=== PATIENT | female | born 1985 | race Two or more races ===

== ENCOUNTER 2016-09-01 10:50 | Inpatient (IN) | payer MEDICAID ==
[~2016-09-01] VITALS: Ht 157.5 cm; Wt 68.9 kg
[2016-09-01] MEDS ORDERED: LACTATED RINGER'S 1,000 ML IV SCH (11:47)
[2016-09-01] MEDS ORDERED: LACT. RINGERS/OXYTOCIN 20UNITS 1,000 ML IV SCH (11:47)
[2016-09-01] MEDS ORDERED: NALBUPHINE HCL 10 MG/1ml INJECTION IM PRN (12:00)
[2016-09-01] MEDS ORDERED: PHISODERM TOP SOLN 240ML BTL TOP PRN (12:00)
[2016-09-01] MEDS ORDERED: DERMOPLAST 60ML BOTTLE TOP PRN (12:00)
[2016-09-01] MEDS ORDERED: PROMETHAZINE HCL 25 MG/ML 1ML IV PRN (12:00)
[2016-09-01] MEDS ORDERED: LIDOCAINE 2%HCL (LOCAL ANESTH.) INJ 20ML MDV IJ ONE (12:00)
[2016-09-01] MEDS ORDERED: WITCH HAZEL-GLYCERIN PAD TOP PRN (12:00)
[2016-09-01 12:13] LABS: Basophils # (auto) 0 uL; Basophils % (auto) 0.3 % (0.0-2.0); Eosinophils # (auto) 0 uL; Eosinophils % (auto) 0.4 % (0.0-7.0); Hematocrit 41.8 % (36.0-46.0); Hemoglobin 13.8 g/dL (12.2-16.2); Lymphocytes # (auto) 1.4 uL; Lymphocytes % (auto) 15.8 % (10.0-50.0); Mean Corpuscular Hemoglobin 29.7 pg (28.0-32.0); Mean Corpuscular Hgb Conc. 33.1 g/dL (32.0-36.0); Mean Corpuscular Volume 89.8 fL (80.0-100.0); Mean Platelet Volume 8.7 fL (7.4-10.4); Monocytes # (auto) 0.5 uL; Monocytes % (auto) 5.7 % (0.0-12.0); Neutrophils # (auto) 6.9 uL; Neutrophils % (auto) 77.8 % (37.0-80.0); Platelet Count (auto) 235 10^3/uL (140-450); Red Cell Distribution Width 14.3 % (11.6-16.0); White Blood Cell 8.9 10^3/uL (4.4-10.8)
[2016-09-01 12:28] LABS: INR 0.91 (0.9-1.15); Partial Thromboplastin Time 25.6 sec (22.64-33.71); Prothrombin Time 9.4 sec (9.37-12.3)
[2016-09-01 12:31] LABS: Urine Bilirubin Negative (Negative); Urine Blood 1+ /uL (Negative); Urine Color Yellow (Yellow); Urine Glucose Normal (Normal); Urine Ketone Negative (Negative); Urine Nitrite Negative (Negative); Urine RBC 9 /hpf (0 - 4); Urine Squamous Epithelial Cell FEW /hpf (<5); Urine Urobilinogen Normal (Negative)
[2016-09-01 12:40] LABS: Albumin 2.8 g/dL (3.4-5.0); BUN/Creatinine Ratio 15.8; Calcium 8.9 mg/dL (8.5-10.1); Potassium 3.9 mmol/L (3.5-5.1)
[2016-09-01 12:42] LABS: Bilirubin, Total 0.2 mg/dL (0.2-1.0); Total Protein 6.6 g/dL (6.4-8.2)
[2016-09-01] MEDS ORDERED: ACETAMINOPHEN 325 MG TAB PO PRN (15:45)
[2016-09-01] MEDS ORDERED: IBUPROFEN 600 MG TAB PO PRN (15:45)
[2016-09-01] MEDS: DOCUSATE CALCIUM 240 MG CAP PO SCH (17:00)
[2016-09-01 20:04] VITALS: BP 129/74
[2016-09-01 23:27] VITALS: BP 136/82
[2016-09-02 03:12] VITALS: BP 118/72
[2016-09-02 08:00] VITALS: BP 115/73
[2016-09-02] MEDS: DOCUSATE CALCIUM 240 MG CAP PO SCH (10:00)
[2016-09-02 12:00] VITALS: BP 114/63
== END 2016-09-02 15:00 | disposition home or self-care (01) | DRG 560 ==
LOC: LDRP 10:50 → OBSVTOIN 10:50
PROVIDERS: ADMIT Specialist; ATTEND Specialist
PROC: 10E0XZZ Delivery of Products of Conception, External Approach (ICD-10-PCS; principal; 2016-09-01)
DX: O75.89 Other specified complications of labor and delivery (principal); N75.0 Cyst of Bartholin's gland; Z37.0 Single live birth; Z3A.38 38 weeks gestation of pregnancy
CPT/HCPCS: 36415; 51702; 59409; 76805; 80053; 81001; 85025; 85610; 85730; 86850; 86900; 86901; G0434; J2590